=== PATIENT | female | born 1985 ===

== ENCOUNTER → 2016-10-12 | Outpatient (CLI) | payer OTHER ==
--- NOTE | 2016-10-12 17:41 | PE ---
EXAMINATION TYPE: PET CT fusion skull to thigh DATE OF EXAM: 10/12/2016 CLINICAL HISTORY: Uterine cancer original surgery February 12, 2016 completed chemotherapy and radiati on treatment in June 2016. TECHNIQUE: Following the intravenous administration of 14.58 mCi of F-18 FDG, whole body images are performed from the skull base to the midthigh. Images are reviewed on the computer in the coronal, axial, and sagittal planes. Reconstructed rotating images are created on independent workstation and reviewed on the computer. A non-contrast CT is performed in conjunction with the PET scan. COMPARISON: None. FINDINGS: SKULL BASE AND NECK: No suspicious hypermetabolic uptake is seen in the neck. CHEST, MEDIASTINUM, AND HILAR REGION: No suspicious hypermetabolic uptake is seen in the thorax. ABDOMEN AND PELVIS: No suspicious hypermetabolic uptake is seen in the abdomen or pelvis. Uterus is s urgically absent. OSSEOUS STRUCTURES: No suspicious hypermetabolic uptake is seen in osseous structures. OTHER CT: There is right internal jugular Mediport catheter with tip near cavoatrial junction. Surgical change in the anterior abdominal wall is present with scarring inferiorly. There is a thin-w alled fluid collection on axial image 190 measuring 3.0 x 2.0 cm just above rectus sheath could refle ct postsurgical seroma, other etiologies are not excluded. Superior to this a bowel containing incisi onal hernia cannot be excluded near image 172. No bowel obstruction is present. There is small clip or foreign body causing streak artifact in the right pelvis on axial image 202. There is mild to moderate irregular wall thickening of the rectum near this level with mild presacral fat stranding, finding is favored related to treatment change. There is facet arthropathy in the lower lumbar spine. IMPRESSION: Uterus is surgically absent. No suspicious hypermetabolic uptake is seen to suggest metas tatic malignancy.
== END | disposition home or self-care (01) ==
LOC: RADPETMAIN 13:54
PROVIDERS: ATTEND Internal Medicine Medical Oncology
DX: C57.9 Malignant neoplasm of female genital organ, unspecified (principal); Z90.710 Acquired absence of both cervix and uterus
CPT/HCPCS: 78815; A9552